=== PATIENT | male | born 1935 | race Caucasian/White ===

== ENCOUNTER 2016-09-04 | Outpatient (CLI) | END 2016-09-04 17:37 | disposition critical access hospital (66) | CPT/HCPCS: A0425; A0427 ==

== ENCOUNTER 2016-09-04 18:11 | Emergency (ER) | payer MEDICARE ==
[2016-09-04] MEDS ORDERED: SODIUM CHLORIDE 0.9% 1,000 ML IV ONE (20:06)
== END 2016-09-04 20:29 | disposition home or self-care (01) ==
DX: E86.0 Dehydration (principal); R55 Syncope and collapse; I25.10 Atherosclerotic heart disease of native coronary artery without angina pectoris; Z95.1 Presence of aortocoronary bypass graft; Z95.0 Presence of cardiac pacemaker; Z86.73 Personal history of transient ischemic attack (TIA), and cerebral infarction without residual deficits

== ENCOUNTER 2016-11-18 20:48 | Outpatient (CLI) | payer MEDICARE | END 2016-11-18 20:49 | disposition short-term general hospital (02) | DX: R46.2 Strange and inexplicable behavior (principal) | CPT/HCPCS: A0170; A0425; A0429 ==

== ENCOUNTER 2016-12-19 13:22 | Outpatient (CLI) | payer MEDICARE | END 2016-12-19 13:23 | disposition home or self-care (01) | DX: Z01.810 Encounter for preprocedural cardiovascular examination (principal); I48.91 Unspecified atrial fibrillation ==

== ENCOUNTER 2017-04-03 13:29 | Outpatient (CLI) | payer MEDICARE | END 2017-04-03 13:30 | disposition home or self-care (01) | LOC: SC 13:29 | PROVIDERS: ATTEND Nurse Practitioner Family | DX: G47.33 Obstructive sleep apnea (adult) (pediatric) (principal) | CPT/HCPCS: 99213; G0463; 99212 ==

== ENCOUNTER 2017-05-23 14:35 | Outpatient (CLI) | payer MEDICARE | END 2017-05-23 14:36 | disposition short-term general hospital (02) | LOC: EMS 14:35 | PROVIDERS: ATTEND Surgery | DX: M25.551 Pain in right hip (principal) | CPT/HCPCS: A0170; A0425; A0427 ==

== ENCOUNTER 2017-06-14 19:27 | Outpatient (CLI) | payer MEDICARE | END 2017-06-14 19:28 | disposition critical access hospital (66) | LOC: EMS 19:27 | PROVIDERS: ATTEND Surgery | DX: R09.89 Other specified symptoms and signs involving the circulatory and respiratory systems (principal) | CPT/HCPCS: A0425; A0429 ==

== ENCOUNTER 2017-06-14 20:04 | Emergency (ER) | payer MEDICARE ==
--- NOTE | 2017-06-14 20:42 | ED Physician Documentation ---
PD HPI HEENT FB - Chief complaint Chief Complaint: General - History obtained from History obtained from: Patient, EMS - History of Present Illness Timing - onset: Today Associated symptoms: Unable to swallow Similar symptoms before: Has not had sx before Recently seen: Not recently seen - Additional information Additional information: Patient is an 81 year old male who is presenting to the emergency department for the sensation of having a pill stuck in his throat. Patient states that he tried to swallow a pill that was about an inch long. Patient states that still feels like it is in his throat. Patient was able to drink a complete glass of water with ems before arrival. Patient does have a history of dementia. Review of Systems Constitutional: denies: Fever, Chills Eyes: denies: Decreased vision Ears: denies: Ear pain, Drainage/discharge Nose: denies: Epistaxis, Sinus pressure / pain, Foreign Body Throat: reports: Swallowed foreign body. denies: Sore throat Cardiac: denies: Chest pain / pressure, Palpitations, Calf pain Respiratory: denies: Dyspnea, Cough, Wheezing GI: denies: Nausea, Vomiting : reports: Reviewed and negative Skin: reports: Reviewed and negative Neurologic: reports: Other (chronic tremor) Immunocompromised: reports: Immunocompromised PD PAST MEDICAL HISTORY - Past Medical History Cardiovascular: Coronary artery disease Neuro: TIA - Past Surgical History Past Surgical History: Yes Cardiovascular: CABG - Present Medications Home Medications: Ambulatory Orders Medication Instructions Recorded Confirmed Amiodarone [Pacerone] DAILY 08/23/14 08/23/14 Atorvastatin [Lipitor] 08/23/14 08/23/14 Clopidogrel Bisulfate [Clopidogrel] DAILY 08/23/14 08/23/14 Levothyroxine [Synthroid] DAILY 08/23/14 08/23/14 - Allergies Allergies/Adverse Reactions: Allergies Allergy/AdvReac Type Severity Reaction Status Date / Time codeine Allergy Itching Verified 06/14/17 20:13 lisinopril Allergy Unknown Verified 06/14/17 20:13 Sulfa (Sulfonamide Allergy Rash Verified 06/14/17 20:13 Antibiotics) - Social History Does the pt smoke?: No Smoking Status: Never smoker Does the pt drink ETOH?: Yes Does the pt have substance abuse?: No - Immunizations Immunizations are current?: No PD ED PE NORMAL - Vitals Vital signs reviewed: Yes - General General: Alert and oriented X 3, No acute distress, Well developed/nourished - HEENT HEENT: Atraumatic, PERRL, Moist mucous membranes, Pharynx benign, Dentition benign - Neck Neck: Supple, no meningeal sign, No JVD - Cardiac Cardiac: RRR, No murmur - Respiratory Respiratory: No respiratory distress - Abdomen Abdomen: Soft, Non tender, Non distended - Derm Derm: Normal color, Warm and dry, No rash - Extremities Extremities: No deformity, No tenderness to palpate - Neuro Neuro: Alert and oriented X 3, No motor deficit, No sensory deficit, Normal speech - Psych Psych: Normal mood, Normal affect PD ED PE EXPANDED - General General: Alert, Anxious - Neuro Neuro: Other (tremor of right upper extremity) Results - Vitals Vitals: Vital Signs - 24 hr 06/14/17 06/14/17 20:10 21:06 Temperature 36.2 C L Heart Rate 64 60 Respiratory 20 16 Rate Blood Pressure 184/73 H 220/98 H O2 Saturation 98 100 Oxygen O2 Source Room air PD MEDICAL DECISION MAKING - ED course Complexity details: reviewed old records, reviewed results, re-evaluated patient , considered differential, d/w patient ED course: Patient was seen and examined at bedside. Patient was well appearing and able to tolerate PO without any difficulty. Patient had no pooling of secretions or airway compromise. Patient was made aware that there was no acute intervention necessary at this time. Patient required no further work up and was stable for discharge with outpatient follow up. Departure - Departure Disposition: 01 Home, Self Care Clinical Impression: Dysphagia Condition: Good Instructions: ED Foreign Body Swallowed Adult Follow-Up: [facility] [Provider Group] - Within 3 Days Comments: Your symptoms should improve over the next day. You should continue to drink small sips of water or carbonated beverages again. If the symptoms persist for more than 24 hours you should follow up with [facility]. You should avoid large bites of food, especially meats (proteins). You should return to an emergency department if you are unable to swallow secretions or any new, worsening or uncontrollable symptoms. Discharge Date/Time: 06/14/17 21:17
[2017-06-14 21:08] VITALS: BP 220/98
== END 2017-06-14 21:17 | disposition home or self-care (01) ==
LOC: EDUNIT# → ED 20:04
DX: R13.10 Dysphagia, unspecified (principal); I25.10 Atherosclerotic heart disease of native coronary artery without angina pectoris; Z95.1 Presence of aortocoronary bypass graft; Z86.73 Personal history of transient ischemic attack (TIA), and cerebral infarction without residual deficits
CPT/HCPCS: 99283

== ENCOUNTER 2018-03-19 13:12 | Outpatient (CLI) | payer MEDICARE ==
--- NOTE | 2018-03-19 16:09 | XRAY Report ---
Procedure Date: 03/19/2018 Accession Number: [id number] / [id number] Procedure: FL - Modified Barium Swallow W/SP CPT Code: FULL RESULT: EXAM: Modified Barium Swallow W/SP DATE: 03/19/2018 1:52 PM CLINICAL HISTORY: DYSPHAGIA, GLOBUS SENSATION COMPARISON: None. TECHNIQUE: Under the direction of speech pathology, patient swallowed various consistencies of barium under lateral fluoroscopic observation of the neck. Fluoroscopic exposure time: 1 minutes 45 seconds. Number of fluoroscopic images: 11 cm loops were recorded. FINDINGS: Airway Protection: Normal epiglottic motion. Silent aspiration is noted with fruit/mixed consistency. Penetration is noted with multiple consistencies. Other: None. Please also refer to full report from Speech Pathology. IMPRESSION: Silent aspiration to mixed consistency foods. RADIA
== END 2018-03-19 13:13 | disposition home or self-care (01) ==
LOC: DI 13:12
PROVIDERS: ATTEND Registered Nurse
DX: R13.10 Dysphagia, unspecified (principal); F45.8 Other somatoform disorders; G20 Parkinson's disease; F02.80 Dementia in other diseases classified elsewhere, unspecified severity, without behavioral disturbance, psychotic disturbance, mood disturbance, and anxiety
CPT/HCPCS: 74230

== ENCOUNTER 2018-04-10 21:16 | Outpatient (CLI) | payer MEDICARE ==
--- NOTE | 2018-04-10 21:34 | CONSULTATION NOTE ---
Palliative Care Consultation - Referral Referring Provider: ALMA DELIA Manrique Time of Visit: 04/10/2018. 13:35 -15:30 Referral setting: Home (Seen in home setting due to taxing and considerable effort required to leave the home due to difficulty with mobility secondary to Parkinson's and advancing dementia.) Referral Reason: Parkinson's, dementia - Information Sources Records reviewed: Previous records reviewed History/Review of Systems obtained from: Patient, Family Exam limitations: Clinical condition (Dementia, expressive aphasia s/p CVA 2013- 2014) - History of Present Illness Brief History of Present Illness: 82 year old man with Parkinson's disease, advancing dementia, and expressive aphasia s/p CVA in 2016. 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 -He had an incidence of choking/swallowing problems recently which shook him up and made him very nervous about eating. I spoke with the EDUCATION CONSULTANT and she noted in fact he has a very functional swallow. The modified barium swallow evaluation in March indicated silent aspiration with fruit/mixed consistency (which is very common), so he should avoid foods with mixed chunks and liquid (cereal with milk , fruit cocktails, chunky vegetable soup). -Patient and partner report his appetite has been poor and he has lost 18 lbs over the past year, 4 lbs from mid-February to March, was 145 lbs in March, now 137 lbs. partner does report, however, that his appetite has recently improved and weight seems to have stabilized. One of the EDUCATION CONSULTANT's recommendations to family is that he have protein shakes; drinking liquids is easier for people with dementia. -He has been going to outpatient PT for two years at [facility], with therapist Alma Rosa, . He has not gone the past two weeks because of fatigue. His partner asked to have Home Health PT, unfortunately this case does not qualify for . I gave her the name of a local strainer tender who works with older clients. Ashely says they have used her before, and she will think about recontacting her. She does state Alma Rosa the PT has said she "won't release him." -Patient has significant expressive aphasia, speaking in non-sequitars and non- sense ("I am 89 years old," "suddenly you're getting organized by the poop"), and at times it is possible to interpret his intent, but mostly not. Partner reports he was constipated years ago and so concerned about it that he wanted to go to the hospital. -He was perseverating regarding constipation and related subjects, often and throughout the assessment, it was unclear what his concern was. Ashely reports he had very loose stools when taking metmucil and they have stopped using it. -Now he has bowel movements approximately every other day. This appears to cause him concern, possibly because it is a change from his previous baseline. -He denies pain, expresses some concern over his inability to do what he used to do. This appears consistent with his general anxiety about his health. Medical/Surgical History - Past Medical History Cardiovascular: reports: Hypertension, High cholesterol, Coronary artery disease , Atrial fibrillation Respiratory: reports: Sleep apnea Neuro: reports: Dementia, CVA (R occipital lobe 10/2015), TIA, Tremors (R hand), Other (Expressive aphasia s/p CVA.) Endocrine/Autoimmune: reports: HyPOthyroidism HEENT: reports: Glaucoma, Macular degeneration - Past Surgical History General: reports: Colonoscopy (01/2014) Ortho: reports: Hip replacement (bilateral), Knee replacement (bilateral) Cardiovascular: reports: CABG, Pacemaker Derm: reports: Skin cancer surgery (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 Support System: Ashely Chaney, his life partner of many years, lives with him. They currently have someone come in intermittently to [place]ovie, cook, and watch the patient so Ashely can leave the house. She has a farm nearby in [place] that is a refuge for her. She leave him alone if she is gone for short periods, such as to her farm. If she leaves for longer periods, such as going to [place] , she has someone at the house, Mikayla, who comes in 1-2x/week for housekeeping , cooking, and looking after the patient. The patient has three children. HPI from PCP's office notes he is a byers. 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 Family History - Family History Family History Comment/Other: Father age 67 of stroke. other age unknown, alcoholic. Half- sister , unknown age. Medications/Allergies - Medications Home Medications: Ambulatory Orders Medication Instructions Recorded Confirmed Amiodarone [Pacerone] 200 mg PO DAILY 08/23/14 08/23/14 Atorvastatin Calcium 0.5 tab PO QPM 04/10/18 04/10/18 Brimonidine 0.1% Ophth Drops 1 drops EACHEYE TID 04/10/18 04/10/18 [Alphagan P 0.1% Ophth Drops] Carbidopa/Levodopa [Carbidopa-Levo 1 tab PO TID 04/10/18 04/10/18 ER 25-100 Tab] Dabigatran Etexilate Mesylate 150 mg PO QPM 04/10/18 04/10/18 [Pradaxa] Donepezil [Aricept] 5 mg PO DAILY 04/10/18 04/10/18 Latanoprost 1 drops EACHEYE QPM 04/10/18 04/10/18 Levothyroxine [Synthroid] 50 mcg PO DAILY 04/10/18 04/10/18 Vit A/Vit C/Vit E/Zinc/Copper 1 cap PO BID 04/10/18 04/10/18 [Preservision Areds Softgel] - Allergies Allergies/Adverse Reactions: Allergies Allergy/AdvReac Type Severity Reaction Status Date / Time codeine Allergy Itching Verified 06/14/17 20:13 lisinopril Allergy Unknown Verified 06/14/17 20:13 Sulfa (Sulfonamide Allergy Rash Verified 06/14/17 20:13 Antibiotics) Review of Systems - Constitutional Constitutional: reports: Poor appetite, Weight loss (145 lbs on 03/08/18, lost 4 lbs since February, 10 lbs over the past year) - Eyes Eyes: reports: Vision loss - Ears, Nose & Throat Ears, Nose & Throat: denies: Hearing loss - Cardiovascular Cardiovascular: reports: Exertional dyspnea, Decr. exercise tolerance. denies: Palpitations, Chest pain, Edema - Respiratory Respiratory: reports: SOB with exertion. denies: Cough, Sputum production, SOB at rest - Gastrointestinal Gastrointestinal: reports: Constipation (bowel movements every other day), Poor appetite - Genitourinary Genitourinary: denies: Dysuria - Musculoskeletal Musculoskeletal: reports: Assistive devices (Uses cane; also has a walker) - Neurological Neurological: reports: Memory problems, Abnormal gait, Incoordination, Other (R hand tremor) - Endocrine Endocrine: reports: Hypothyroidism - Hematologic/Lymphatic Hematologic/Lymphatic: reports: Other Physical Exam - Vital Signs Temperature: 96.7 F Pulse Rate: 64 O2 Saturation: 99 Blood Pressure: 132/68 (arm cuff) - Physical Exam General Appearance: positive: No acute distress, Alert Eyes Bilateral: positive: EOMI, No lid inflammation, No scleral icterus ENT: positive: No signs of dehydration Neck: positive: No JVD, Trachea midline Cardiovascular: positive: Regular rate & rhythm, Systolic murmur (09/09) Abdomen: positive: Non-tender, Soft, Abnml bowel sounds (hypoactive) Skin: positive: Bruising (Hemosiderin staining bilateral backs of hands) Extremities: positive: Pedal edema (minimal) Neurologic/Psychiatric: positive: Mood/affect nml, Disoriented to time Palliative Care - POLST Patient has POLST: No Pain: No pain Tiredness/Fatigue: Mild (1-3) Drowsiness/Sedation: None Dyspnea: None Anorexia: Moderate (4-6) Constipation: Intermittent constipation (bowel movements every other day) Performance Status: Requires assistance with ADLs, bathinig, putting on shoes. Unable to do IADLs ( finances, housekeeping, etc). Can ambulate without cane or walker, but uses cane outside. He had been going to PT outpatient for several years, but stopped going over the past two weeks, because he is tired. Yesterday he left the house and walked independently to the road, met up with a community health advisor friend who brought him back to the house. - Palliative Care Discussion: Had a very long discussion with Ashely the partner and the patient. Ashely reports they have POA and advanced directives for each other, but she is unable to find them. If left blank DPOA forms with them for them to fill out, if they wish Her wishes are that the patient avoids hospitalization, and comfort care. This is also what she wishes for herself. She says when they have discussed it in the past, they both agreed, and comfort care is what she chooses for her self. It is difficult to determine if this is also the wish of the patient. We had a long discussion of advanced care planning, it appeared he would not want resuscitation, but he felt some confusion and lack of clarity, he ultimately wasn't ready to sign a POLST, particularly after learning that Ashely was not able to also sign a POLST today with him (she is not my patient). Patient has difficulty comprehending as well as asking questions and expressing himself. We agreed we will continue the advanced care planning discussion at our next meeting. Ashely shows evidence of caregiver burnout. She sometimes thinks, "I'm not a good caregiver." She is uncertain whether to force it (eg, medication compliance ) or is she letting him down if she doesn't force it. I provided some guidance and reassurance. Both she and the patient are grateful for Mikayla, their imaging administrator/cook who also stays with the patient so that Ashely can get some time out fo the house. She does feel she could go "franco raving mad" if she had to stay in the house all of the time. I offered [employer]ING INSTALLER support as needed for psychosocial support. [place]ly took care of her mother for the last 6 years of her life, and her mother while on Hospice. Ashely thinks the Hospice services was amazing and has had a very positive experience with Hospice for her mother. Her biggest concern is being able to care of the patient so he can stay at home ; she does not want him in the hospital or a facility. We discussed having sufficient caregiving support, as well as hospice eventually, when he meets criteria. In a follow up call to Ashely she expressed how much this palliative care visit really helped, in the sense of her feeling that now she has support. She said she feels much better after our visit. Impression and Recommendations - Palliative Care Impression: 82 year old man with Parkinson's disease, advancing dementia, and expressive aphasia s/p CVA in 2016. He has slow, steady decline with dysphagia and weight loss over the past year. He is at risk of the sequelae of aspiration pneumonia as well as falls with his Parkinson's disease and dementia. His partner is at risk of caregiver burnout. They do have financial resources to bring in outside caregiver support. Palliative care will offer support and monitoring, with transition to Hospice when appropriate. Recommendations/Counseling Done: Parkinson's disease: Patient and partner are hoping to avoid trips on to the [facility] for regular appointments. I told her PCP and Palliative care can write prescription refills while patient is stable, if neurologist Dr Wiggins at [facility] is agreeable. Patient has noticeable R hand tremor, but still able to sign his name today. Able to walk unaided today; usually uses a cane. No sign of PD freeze or shuffling today, partner notes that today he is walking very well, which is not usually the case. Continue Sinemet 25/100 TID. Dementia: Stable, with slow decline, marked confusion and difficulty processing information. Continue donpezil 5mg. Expressive aphasia s/p CVA 2016: Marked difficulty with expressing complex sentences. Continue Atorvastatin. Atrial fibrillation: Continue Pradaza for anticoagulation, amiodarone for rate control. Dysphagia: Patient had barium swallow test in March, EDUCATION CONSULTANT report shows he has a functional swallow, but needs to avoid mixed solids and liquids (veg/meats in broth, cereal in milk, fruit cocktail in syrup, etc) Constipation: This has been a chronic, ongoing concern of the patient's going back quite a few years; he was perseverating about it today. He has been anxious enough about it in the past to want to go to the hospital, something like 8 years ago. Ashely reports the patient has bowel movements about every other day. They are not currently using bowel medications. Metamucil in the past caused loose stools so they have stopped. Patient is not on opioids. Monitor and start bowel meds as indicated. Weight loss: Was 145 lbs 03/08/18, had lost 10 lbs up to that point. reports he is currently 137 lbs and has stabilized there, with his appetite showing some rebound. EDUCATION CONSULTANT has recommended nutritional smoothies, blending can of Ensure , ice cream, fresh fruit, and chocolate syrup, which is a complete. Glaucoma: Partner notes medication resistance, particularly the brimonidine TID drops. I encouraged her to not make it a graham, do the best, keep a record. Continue latanoprost drops QPM and Preservision BID. Advanced care planning: No POLST was signed today, patient confused when Ashely was not able to also sign a POLST. Partner has definite ideas for herself of DRN and comfort care, relates that she and the patient had agreed on this in the past. She is not able to find their signed advanced directives, nor the DPOA papers. I left DPOA papers with her. We agreed to continue the conversation about goals of care at the next meeting. The patient has stated he doesn't want CPR, but he is confused about the comfort care vs selective care. Ashely's goal is to take care of him and home, and to not have him institutionalized or hospitalized, and she is relieved to have palliative care support, and she would like him transitioned to Hospice when appropriate; she has had very good experience in the past with Hospice for her mother. Call in 3-4 weeks to schedule follow-up meeting. Time Spent: 115 minutes were spent with more than 50% of the time spent on counseling, education, anticipatory guidance, and coordination of care.
== END 2018-04-10 21:17 | disposition home or self-care (01) ==
LOC: PC 21:16
PROVIDERS: ATTEND Nurse Practitioner
DX: Z51.5 Encounter for palliative care (principal); G20 Parkinson's disease; F03.90 Unspecified dementia, unspecified severity, without behavioral disturbance, psychotic disturbance, mood disturbance, and anxiety; I69.320 Aphasia following cerebral infarction; I48.91 Unspecified atrial fibrillation; Z79.01 Long term (current) use of anticoagulants; K59.00 Constipation, unspecified; R63.4 Abnormal weight loss; H40.9 Unspecified glaucoma; Z95.5 Presence of coronary angioplasty implant and graft; Z87.891 Personal history of nicotine dependence
CPT/HCPCS: 99345

== ENCOUNTER 2018-05-08 20:35 | Outpatient (CLI) | payer MEDICARE ==
--- NOTE | 2018-05-08 20:46 | CONSULTATION NOTE ---
Palliative Care Follow Up - Referral Referring Provider: ALMA DELIA Manrique Time of Visit: 05/08/2018. 13:25 - 14:30. Referral Reason: Constipation - Information Sources Records reviewed: Previous records reviewed History/Review of Systems obtained from: Patient, Family Exam limitations: Clinical condition (Parkinson's dementia; expressive aphasia s /p CVA) - History of Present Illness Update Brief HPI Update: 82 year old man with Parkinson's disease, advancing dementia, and expressive aphasia s/p CVA in 2016. 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 -PCP initially recommended Milk of Mg every 20-30 minutes until a bowel movement occurred. His partner was not skeptical of this, so Miralax was recommended instead. -He has had bowel movements since then. We had a long discussion, I recommend Senna daily and also Miralax, but titrate dosing, better to start with a small dose, increase as needed every 2-3 days, they may need to do something like 1/4 capful every other day. -The emphasis was on using the bowel meds in a consistent manner, and they will need to monitor and keep a journal to vacuum bottle assembler what is the optimum dosing for him. -Also strongly recommended adding fiber to diet through fruits, vegs, beans, etc , and get him up and moving as often as possible instead of sedentary in the chair. He also doesn't hydrate regularly. -Patient has episodic redness, rawness around his anus; I recommmended several different creams. Social History - Living Situation Living arrangement: At home Living Situation: With spouse/s.o. Support System: Lives at home with his partner of 20+ years, Ashely. they have a helper who comes intermittently to [facility] with housework, cooking and watching the patient so Ashely can leave. She has farmland nearby that she likes to work in. The patient has 3 children. He is a retired assistant city attorney. Medications/Allergies - Medications Home Medications: Ambulatory Orders Medication Instructions Recorded Confirmed Amiodarone [Pacerone] 200 mg PO DAILY 08/23/14 05/08/18 Atorvastatin Calcium 20 mg PO QPM 04/10/18 05/08/18 Brimonidine 0.1% Ophth Drops 1 drops EACHEYE TID 04/10/18 05/08/18 [Alphagan P 0.1% Ophth Drops] Carbidopa/Levodopa [Carbidopa-Levo 1 tab PO TID 04/10/18 05/08/18 ER 25-100 Tab] Dabigatran Etexilate Mesylate 150 mg PO QPM 04/10/18 05/08/18 [Pradaxa] Donepezil [Aricept] 5 mg PO DAILY 04/10/18 05/08/18 Latanoprost 1 drops EACHEYE QPM 04/10/18 05/08/18 Levothyroxine [Synthroid] 50 mcg PO DAILY 04/10/18 05/08/18 Vit A/Vit C/Vit E/Zinc/Copper 1 cap PO BID 04/10/18 05/08/18 [Preservision Areds Softgel] - Allergies Allergies/Adverse Reactions: Allergies Allergy/AdvReac Type Severity Reaction Status Date / Time codeine Allergy Itching Verified 06/14/17 20:13 lisinopril Allergy Unknown Verified 06/14/17 20:13 Sulfa (Sulfonamide Allergy Rash Verified 06/14/17 20:13 Antibiotics) Review of Systems - Constitutional Constitutional: reports: Poor appetite, Weight stable (Weighed 140 lbs today, with clothes and shoes on. On 04/10 it was 137 lbs, without clothing and shoes. But he had lost 10 lbs over the past year.) - Cardiovascular Cardiovascular: reports: Decr. exercise tolerance - Respiratory Respiratory: denies: SOB at rest - Gastrointestinal Gastrointestinal: denies: Abdominal pain, Abdominal distention, Nausea - Genitourinary Genitourinary: reports: Incontinence (occasional urinary incontinence) - Musculoskeletal Musculoskeletal: reports: Assistive devices (walker and cane), Transfer issues ( self transfers) - Neurological Neurological: reports: Other (Parkinson's and expressive aphasia s/p CVA) - Endocrine Endocrine: reports: Hypothyroidism Physical Exam - Vital Signs Temperature: 96.5 F Pulse Rate: 83 O2 Saturation: 99 Blood Pressure: 95/55 (wrist cuff) - Physical Exam General Appearance: positive: No acute distress, Alert Eyes Bilateral: positive: No lid inflammation, Conjunctivae nml, No scleral icterus ENT: positive: No signs of dehydration Neck: positive: Trachea midline Cardiovascular: positive: No murmur, No gallop, Irregular Respiratory: positive: No respiratory distress, Breath sounds nml Abdomen: positive: Non-tender, Soft, Nml bowel sounds Skin: positive: Other (Redness around anus) Extremities: positive: Nml appearance Neurologic/Psychiatric: positive: Disoriented to time, Other (Pill rolling R hand; expressive aphasia/word search, slow processing time) Palliative Care - POLST Patient has POLST: Yes POLST Status: DNR, Comfort Measures - Palliative Care Discussion: We continued the discussion of goals of care from last visit. Patient seemed clearer this time and able to more successfully focus. He agrees that DNR is what he want, he wants to avoid hospitalization, goal is to remain at home with comfort care. Patient's partner mentions that this is what her goals of care are also. Impression and Recommendations - Palliative Care Impression: 82 year old man with Parkinson's disease, advancing dementia, and expressive aphasia s/p CVA in 2016. He is stable within a context of slow, steady decline over the past year. Goals of care are comfort focused and to remain at home if possible. Patient's life partner is particularly relieved to continue Palliative oversight and support with transition to Hospice when appropriate. Recommendations/Counseling Done: Parkinson's disease: Symmptoms at baseline. [facility], Dr Wiggins at [place]. They would like PCP and Palliative care to refill prescriptions while patient is stable, if neurologist is agreeable. Continue Sinemet 25/100 TID. Dementia: Stable. Continue donpezil 5mg. Expressive aphasia s/p CVA 2016: Expressive aphasia at baseline. Continue Atorvastatin. Atrial fibrillation: Continue Pradaza for anticoagulation, amiodarone for rate control. Dysphagia: Avoid mixed solids and liquids (veg/meats in broth, cereal in milk, fruit cocktail in syrup, etc) to reduce risk for aspiration pneumonia Constipation: Chronic, long-standing. Had a recent stretch of 7 days without BM. Taking Senna 8.6 two tablets daily. Starting miralax. Recommended starting low dose and titrate slowly as indicated. Finding a consistent dosage and timing is mcginnis, instead of using it "as needed." They may end up on an every- other-day schedule. Recommend increasing fiber intake through fruits, vegs, beans, legumes, increase his mobiilty, even just around the house. Weight loss: Stabilized at 140 lbs today, with clothing and shoes. Was 137 lbs at prior visit, without shoes, etc. He's lost about 10 lbs over the pst year. Advanced care planning: POLST signed today: DNR and comfort care. Goal is to remain at home and at home, no hospitalization or institutionalization. 06/13/18 at 12:00 follow-up visit. Time Spent: 65 minutes were spent with more than 50% of the time spent in counseling, education on constipation, anticipatory guidance on goals of care, and coordination of care.
== END 2018-05-08 20:36 | disposition home or self-care (01) ==
LOC: PC 20:35
PROVIDERS: ATTEND Nurse Practitioner
DX: Z51.5 Encounter for palliative care (principal); G20 Parkinson's disease; F02.80 Dementia in other diseases classified elsewhere, unspecified severity, without behavioral disturbance, psychotic disturbance, mood disturbance, and anxiety; I69.920 Aphasia following unspecified cerebrovascular disease; I48.91 Unspecified atrial fibrillation; E03.9 Hypothyroidism, unspecified; E78.5 Hyperlipidemia, unspecified; R13.10 Dysphagia, unspecified; K59.00 Constipation, unspecified; M25.569 Pain in unspecified knee; I10 Essential (primary) hypertension; G47.33 Obstructive sleep apnea (adult) (pediatric); E21.3 Hyperparathyroidism, unspecified; H40.10X0 Unspecified open-angle glaucoma, stage unspecified; H35.30 Unspecified macular degeneration; Z96.653 Presence of artificial knee joint, bilateral; Z95.0 Presence of cardiac pacemaker; Z66 Do not resuscitate
CPT/HCPCS: 99350

== ENCOUNTER 2018-06-13 17:23 | Outpatient (CLI) | payer MEDICARE ==
--- NOTE | 2018-06-13 18:09 | CONSULTATION NOTE ---
Palliative Care Follow Up - Referral Referring Provider: Galina FLANNERY Time of Visit: 06/13/2018. 12:15 - 12:55 Referral setting: Home (Seen in home setting due to taxing and considerable effort required to leave the home due to difficulty with mobility secondary to Parkinson's and advancing dementia.) Referral Reason: Constipation - Information Sources Records reviewed: Previous records reviewed History/Review of Systems obtained from: Patient, Family Exam limitations: Clinical condition (dementia expressive aphasia s/p CVA) - History of Present Illness Update Brief HPI Update: 82 year old man with Parkinson's disease, advancing dementia, and expressive aphasia s/p CVA in 2016. 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 He has a very difficult time tracking conversations and is unable to finish sentences/express himself. -Spouse was using bacitracin solution on his rash around anus, thought it worked better than "Butt Paste" barrier cream. I recommended Coloplast Philomena antifungal barrier cream until resolved. -He has intermittent constipation; they tried Miralax but it upsets his stomach. She started using the dulcolax some what frequently - several times a week. I recommended against that, use it sparingly due to harshness. -They've already stopped using Miralax. I educated on using senna, which they will, either senna 8.6mg or senna/docusate 8.6.mg/50mg. -Spouse reports he gets hemorrhoids, I provided education regarding controlling constipation, and use of creams, eg PrepH, for symptom management Social History - Living Situation Living arrangement: At home Living Situation: With spouse/s.o. Support System: Lives in their yared home with his partner of 20% years, Ashely. They have a helper for housework, cooking, watching him so Ashely can get out of the house. She has a nearby farmland she works in. 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 Medications/Allergies - Medications Home Medications: Ambulatory Orders Medication Instructions Recorded Confirmed Amiodarone [Pacerone] 200 mg PO DAILY 08/23/14 05/08/18 Atorvastatin Calcium 20 mg PO QPM 04/10/18 05/08/18 Brimonidine 0.1% Ophth Drops 1 drops EACHEYE TID 04/10/18 05/08/18 [Alphagan P 0.1% Ophth Drops] Carbidopa/Levodopa [Carbidopa-Levo 1 tab PO TID 04/10/18 05/08/18 ER 25-100 Tab] Dabigatran Etexilate Mesylate 150 mg PO QPM 04/10/18 05/08/18 [Pradaxa] Donepezil [Aricept] 5 mg PO DAILY 04/10/18 05/08/18 Latanoprost 1 drops EACHEYE QPM 04/10/18 05/08/18 Levothyroxine [Synthroid] 50 mcg PO DAILY 04/10/18 05/08/18 Vit A/Vit C/Vit E/Zinc/Copper 1 cap PO BID 04/10/18 05/08/18 [Preservision Areds Softgel] Bisacodyl Supp [Dulcolax Supp] 10 mg RI PRN PRN MDD use only if 06/13/18 06/13/18 no BM in 3 days Coloplast Philomena Antifung Barrier Crm 1 ea TOP DAILY PRN 06/13/18 Senna [Senokot] 1 - 2 tab PO DAILY 06/13/18 06/13/18 - Allergies Allergies/Adverse Reactions: Allergies Allergy/AdvReac Type Severity Reaction Status Date / Time codeine Allergy Itching Verified 06/14/17 20:13 lisinopril Allergy Unknown Verified 06/14/17 20:13 Sulfa (Sulfonamide Allergy Rash Verified 06/14/17 20:13 Antibiotics) Review of Systems - Constitutional Constitutional: reports: Weight stable (137-140 lbs) - Ears, Nose & Throat Ears, Nose & Throat: reports: Hearing loss - Cardiovascular Cardiovascular: reports: Decr. exercise tolerance. denies: Chest pain - Respiratory Respiratory: denies: Cough - Gastrointestinal Gastrointestinal: reports: Constipation - Genitourinary Genitourinary: reports: Incontinence (occasional urinary incontinence) - Musculoskeletal Musculoskeletal: reports: Assistive devices (walker and cane), Transfer issues (self transfers, unsteady) - Neurological Neurological: reports: General weakness, Other (Parkinson's disease and expressive aphasia s/p CVA) Physical Exam - Vital Signs Temperature: 96.6 F Pulse Rate: 60 O2 Saturation: 99 (room air) Blood Pressure: 114/56 (wrist cuff) - Physical Exam General Appearance: positive: No acute distress, Alert Eyes Bilateral: positive: No lid inflammation, Conjunctivae nml, No scleral icterus ENT: positive: No signs of dehydration Neck: positive: Trachea midline, Stiff neck Cardiovascular: positive: Systolic murmur (2/6) Respiratory: positive: No respiratory distress, Breath sounds nml Skin: positive: Bruising (back of hand) Neurologic/Psychiatric: positive: Disoriented to time, Flat affect Palliative Care - POLST POLST Status: DNR, Comfort Measures Pain: No pain Tiredness/Fatigue: Mild (1-3) Anxiety: None Anorexia: Mild (1-3) Constipation: Yes, Intermittent constipation Impression and Recommendations - Palliative Care Impression: 82 year old man with Parkinson's disease, advancing dementia, and expressive aphasia s/p CVA in 2016. He still experiences constipation and his partner now has a care plan for this. Palliative care will continue to monitor and provide support to patient and his partner. Recommendations/Counseling Done: Parkinson's disease: Symptoms at baseline. Continue Sinemet 25/100 TID. Dementia: Stable within context of slow, steady decline. Continue donpezil 5mg. Expressive aphasia s/p CVA 2016: Expressive aphasia at baseline. Continue Atorvastatin. Constipation: Extensive discussion. Stop Miralax due to upset stomach. Start Senna 1-2 tabs daily or 1 tab BID. Spouse has been using dulcolax suppository somewhat frequently. Provided education to use it sparingly (more than 3 days of constipation) and instead to use Senna daily. She has Senna/docusate on hand, ok to use that. I suggested just plain senna when her bottle runs out. She can decide which works better. Reiterated recommendation to increase fiber intake through fruits, vegs, beans, legumes, increase his mobility, even just around the house. Hemorroids: Educated on prevention or amelioration of constipation. Prep H for symptom relief Rash, buttocks/anus: Coloplast Philomena Antifunal Barrier Cream. Weight loss: 137 lbs today, at 140 lbs at 05/08 visit, 137 lbs at 04/10/ visit. Patient has lost about 10 lbs over the past year. Advanced care planning: DNR and comfort care. Goal is to remain at home, no hospitalization or institutionalization. Returned the original POLST form to them, accidentally taken with me at last visit. 08/08/18 at 12:00-13:00ish follow-up visit. Time Spent: 40 minutes were spent with more than 50% of the time spent on counseling, education, and coordination of care.
== END 2018-06-13 17:24 | disposition home or self-care (01) ==
LOC: PC 17:23
PROVIDERS: ATTEND Nurse Practitioner
DX: Z51.5 Encounter for palliative care (principal); G20 Parkinson's disease; F02.80 Dementia in other diseases classified elsewhere, unspecified severity, without behavioral disturbance, psychotic disturbance, mood disturbance, and anxiety; I69.920 Aphasia following unspecified cerebrovascular disease; K59.00 Constipation, unspecified; K64.9 Unspecified hemorrhoids; R63.4 Abnormal weight loss; H91.90 Unspecified hearing loss, unspecified ear; R32 Unspecified urinary incontinence; Z66 Do not resuscitate
CPT/HCPCS: 99349

== ENCOUNTER 2018-07-24 09:41 | Outpatient (CLI) | payer MEDICARE | END 2018-07-24 09:42 | disposition short-term general hospital (02) | LOC: EMS 09:41 | PROVIDERS: ATTEND Surgery | DX: R53.1 Weakness (principal) | CPT/HCPCS: A0425; A0427 ==

== ENCOUNTER 2018-08-08 16:07 | Outpatient (CLI) | payer MEDICARE ==
--- NOTE | 2018-08-08 16:39 | CONSULTATION NOTE ---
Palliative Care Follow Up - Referral Referring Provider: ALMA DELIA Manrique Time of Visit: 08/08/2018 Referral setting: Home (Seen in home setting due to taxing and considerable effort due to difficulty with mobility secondary to Parkinson's and advancing dementia.) Referral Reason: Parkinson's - Information Sources Records reviewed: Previous records reviewed History/Review of Systems obtained from: Patient, Family Exam limitations: Clinical condition (dementia; expressive aphasia s/p CVA) - History of Present Illness Update Brief HPI Update: 82 year old man with Parkinson's disease, advancing dementia, and expressive aphasia s/p CVA in 2016. 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 -Diagnostics were negative. CXR found what appeared to be chronic aspiration. -Patient has been admitted this week to [facility] for RN care (medication management, disease teaching, wound management), bath aid, PT, OT, and SP evaluations. -His partner Ashely reports patient is declining, and more tired and weak since discharging from hospital, he is no longer able to climb the steps without her help (she uses a belt to support him). -He also had labile HTN. Today BP is 151/72, it's usually in the 110s-120s. -Patient denies chest pain or shortness of air. -His confusion and aphasia continue to slowly decline. -He has episodes of constipation, and has stopped taking the senna although that has helped keep him regular. Discussed with patient and Ashely, patient agrees to restart taking. -Encouraged increased hydration, Ashely admits to forgeting to provide fluids for him. -Ashely has a hired person who helps out with the house and watching the patient a few times per week. -They have had a follow up consultation with his PCP and have another scheduled. -They will also have an appointment around [place] for his pacemaker. Social History - Living Situation Living arrangement: At home Living Situation: With spouse/s.o. Support System: Patient lives alone with Ashely his partner of 20+ years. They do have a helper for housework, cooking and watching the patient so Ashely can run errands and get out of the house, and go to the nearby farmland she works at. 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 Medications/Allergies - Medications Home Medications: Ambulatory Orders Medication Instructions Recorded Confirmed Amiodarone [Pacerone] 200 mg PO DAILY 08/23/14 08/08/18 Atorvastatin Calcium 20 mg PO QPM 04/10/18 08/08/18 Carbidopa/Levodopa [Carbidopa-Levo 1 tab PO TID 04/10/18 08/08/18 ER 25-100 Tab] Dabigatran Etexilate Mesylate 150 mg PO BID 04/10/18 08/08/18 [Pradaxa] Donepezil [Aricept] 10 mg PO DAILY 04/10/18 08/08/18 Levothyroxine [Synthroid] 50 mcg PO DAILY 04/10/18 08/08/18 Vit A/Vit C/Vit E/Zinc/Copper 1 cap PO BID 04/10/18 08/08/18 [Preservision Areds Softgel] Bisacodyl Supp [Dulcolax Supp] 10 mg [place] PRN PRN MDD use only if 06/13/18 08/08/18 no BM in 3 days Coloplast Philomena Antifung Barrier Crm 1 ea TOP DAILY PRN 06/13/18 08/08/18 Senna [Senokot] 1 - 2 tab PO DAILY 06/13/18 08/08/18 - Allergies Allergies/Adverse Reactions: Allergies Allergy/AdvReac Type Severity Reaction Status Date / Time codeine Allergy Itching Verified 06/14/17 20:13 lisinopril Allergy Unknown Verified 06/14/17 20:13 Sulfa (Sulfonamide Allergy Rash Verified 06/14/17 20:13 Antibiotics) Review of Systems - Constitutional Constitutional: reports: Fatigue, Weakness, Weight stable (136 lbs. Ranges 137- 140 lbs.) - Ears, Nose & Throat Ears, Nose & Throat: reports: Hearing loss - Cardiovascular Cardiovascular: reports: Decr. exercise tolerance. denies: Chest pain - Respiratory Respiratory: denies: SOB at rest - Gastrointestinal Gastrointestinal: reports: Constipation - Genitourinary Genitourinary: reports: Incontinence (occasional urinary) - Musculoskeletal Musculoskeletal: reports: Assistive devices (walker, cane), Transfer issues (unsteady, increased weakness) - Neurological Neurological: reports: General weakness, Other (Parkinson's, expressive aphasia s/p CVA) - Psychiatric Psychiatric: denies: Behavior disturbances - Endocrine Endocrine: reports: Hypothyroidism - Hematologic/Lymphatic Hematologic/Lymphatic: reports: Bruising (hemosiderin staining backs of hands) - All Other Systems All Other Systems: reports: Reviewed and negative Physical Exam - Vital Signs Temperature: 96.4 F Pulse Rate: 72 O2 Saturation: 99 (room air) Blood Pressure: 151/72 (wrist cuff) - Physical Exam General Appearance: positive: No acute distress, Alert Eyes Bilateral: positive: No lid inflammation, Conjunctivae nml, No scleral icterus ENT: positive: No signs of dehydration Neck: positive: No JVD, Trachea midline Cardiovascular: positive: Regular rate & rhythm, No murmur, No gallop Respiratory: positive: Chest non-tender, No respiratory distress, Diminished in bases (R lower lobe). negative: Wheezes, Rales, Rhonchi Skin: positive: Bruising (hemosiderin staining backs of hands) Extremities: positive: Non-tender, Pedal edema (mild pedal edema), Other (significant R arm tremors) Neurologic/Psychiatric: positive: Mood/affect nml, Disoriented to time, Slurred/abnml speech (word salad; word search/incomplete thoughts/sentences) Palliative Care - POLST Patient has POLST: Yes POLST Status: DNR, Comfort Measures Tiredness/Fatigue: Moderate (4-6), Comment (worse since hospital) Constipation: Managed (using senna; won't use Miralax), Intermittent constipation Performance Status: Weaker and more tired since discharge from hospital Requires support/help up the stairs PT OT and SP are starting this week and next week - Palliative Care Discussion: Ashely notes he is weaker and more tired since the hospitalization, and she must helps him more with things like getting dressed. HH nursing and bath aid started this week, and PT, OT and speech have started or will start in the next two weeks. She is grateful for the support, but does not want medical and therapy appointments to "take over their life." Their goal has been for him to remain at home with comfort care, but she thought she was going to lose him when he collapsed and started shaking, and was very grateful that the EMS team arrived so quickly. She is worried about his having aspiration pneumonia; we discussed diet and textures, and Speech therapy will be working with the patient. She wants Palliative Care monitoring and support to continue. Impression and Recommendations - Palliative Care Impression: 82 year old man with Parkinson's disease, advancing dementia, and expressive aphasia s/p CVA in 2016. He was hospitalized 07/24-07/26/18 at [facility] for near syncope and dehydration, and since discharging home has been weaker with declining functionality. He is starting Home Health services this week and in the next 2 weeks: RN, bath aid, PT, OT, SP for dysphagia. Palliative care will continue to monitor and provide support to patient and his partner. Recommendations/Counseling Done: General weakness: Worse ever since hospitalization for a near syncopal event and dehydration. Patient requires more help with ADLs, support when climbing stairs, etc. RN, PT, OT have started or will start next week. Dysphagia: CXR during hospitalization whas what appears to be chronic aspiration. SP evaluation week after next. Partner will start using thickener for his liquids. Parkinson's disease: Significant tremor of R hand. Continue Sinemet 25/100 TID. Dementia: Slow, steady, continued decline. Donepezil now 10mg daily. Expressive aphasia s/p CVA 2016: Expressive aphasia at baseline. Continue Atorvastatin. Atrial fibrillation: Amiodarone for rate control, Dabigatran for anticoagulation. Constipation: Intermittent constipation. Doesn't use Miralax due to upset stoma ch. Patient stopped taking Senna and constipation increased. Recommended restarting Senna 1-2 tabs daily or 1 tab BID. Reiterated education on fiber intake and vegs/fruits in the diet. Rash, buttocks/anus: Coloplast Philomena Antifunal Barrier Cream is working very well.. Weight loss: Stabilized, ranges from 137- 140 lbs. At HH RN visit it is 136 lbs. Patient has lost ~10 lbs over the past year. Advanced care planning: DNR and comfort care and they originally wanted no hospitalization, but partner did call 911 for acute situation. Goal is still to remain at home if possible. Follow up visit: Mon10/24/18 10:30-11:30 Time Spent: 45 minutes were spent with more than 50% of the time spent on counseling, education, and coordination of care.
== END 2018-08-08 16:08 | disposition home or self-care (01) ==
LOC: PC 16:07
PROVIDERS: ATTEND Nurse Practitioner
DX: Z51.5 Encounter for palliative care (principal); G20 Parkinson's disease; F02.80 Dementia in other diseases classified elsewhere, unspecified severity, without behavioral disturbance, psychotic disturbance, mood disturbance, and anxiety; I69.920 Aphasia following unspecified cerebrovascular disease; R13.10 Dysphagia, unspecified; I48.91 Unspecified atrial fibrillation; K59.00 Constipation, unspecified; R21 Rash and other nonspecific skin eruption; R63.4 Abnormal weight loss; E78.5 Hyperlipidemia, unspecified; E03.9 Hypothyroidism, unspecified; M25.559 Pain in unspecified hip; I10 Essential (primary) hypertension; M19.90 Unspecified osteoarthritis, unspecified site; H40.10X0 Unspecified open-angle glaucoma, stage unspecified; H35.30 Unspecified macular degeneration; R53.1 Weakness; Z66 Do not resuscitate; Z95.0 Presence of cardiac pacemaker; Z96.653 Presence of artificial knee joint, bilateral
CPT/HCPCS: 99349

== ENCOUNTER 2018-09-16 11:02 | Outpatient (CLI) | payer MEDICARE | END 2018-09-16 11:03 | disposition EMS.NT | LOC: EMS 11:02 | PROVIDERS: ATTEND Surgery | DX: Z03.89 Encounter for observation for other suspected diseases and conditions ruled out (principal); W18.39XA Other fall on same level, initial encounter; Y93.01 Activity, walking, marching and hiking; Y92.009 Unspecified place in unspecified non-institutional (private) residence as the place of occurrence of the external cause ==

== ENCOUNTER 2018-10-30 16:29 | Outpatient (CLI) | payer MEDICARE ==
--- NOTE | 2018-10-30 16:40 | CONSULTATION NOTE ---
Palliative Care Follow Up - Referral Referring Provider: ALMA DELIA Manrique Time of Visit: Mon10/30/2018. 12:50 - 13:10 Referral setting: Home (Seen in home setting due to taxing and considerable effort due to difficulty with mobility secondary to Parkinson's and advancing dementia.) Referral Reason: Parkinson's / general weakness - History of Present Illness Update Brief HPI Update: 83-year-old man with Parkinson's disease, advancing dementia, and expressive aphasia s/p CVA in 2015. 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 September 2018 EMS was called out for episode of weakness when patient was in the bathroom. EMS stayed with patient and until he recuperated; he wasn't sent to ED. Patient started PT, HH, OT and SP, but only for a short period. OT was a single visit; SP never occurred because of scheduling and the spouse felt too overwhelmed during the holiday season. PT did 3 out of 6 scheduled visits and then the patient and his spouse declined further visits, thinking that he had no need for further PT. The spouse reports she did not find the Bath Aid useful, and they have since found a method that works for them. Spouse reported last week that she felt Palliative Care was no longer needed and asked to be put on hold. Yesterday, however, the patient was extremely tired and weakness, and the spouse felt alarmed and so requested a visit. Today the patient is able to verbalize, transfers from his chair, is ambulatory and is back to his baseline. They report his constipation is under control, he is ambulatory, their caregiver is back from vacation, and the household is running normally again. Ashely, the spouse, emphasizes that their caregiver/drum plater makes all the difference; when she is here, Ashely can go work on her family farm, which is just up the street. Ashely reports she is better able to react when the patient has these episodes of fatigue and weakness, but she would like to continue with the oversight and monitoring of Palliative Care, we agreed every 2-3 months, and as needed if something comes up. Social History - Living Situation Living arrangement: At home Living Situation: With spouse/s.o. Support System: Patient lives alone with Ashely his partner of 20+ years. They do have a helper for housework, cooking and watching the patient so Ashely can run errands and get out of the house, and go to the nearby farmland she works at. 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 Medications/Allergies - Medications Home Medications: Ambulatory Orders Medication Instructions Recorded Confirmed Amiodarone [Pacerone] 100 mg PO DAILY 08/23/14 10/30/18 Atorvastatin Calcium 20 mg PO QPM 04/10/18 10/30/18 Carbidopa/Levodopa [Carbidopa-Levo 1 tab PO TID 04/10/18 10/30/18 ER 25-100 Tab] Dabigatran Etexilate Mesylate 150 mg PO BID 04/10/18 10/30/18 [Pradaxa] Donepezil [Aricept] 20 mg PO DAILY 04/10/18 10/30/18 Levothyroxine [Synthroid] 50 mcg PO DAILY 04/10/18 10/30/18 Bisacodyl Supp [Dulcolax Supp] 10 mg SD PRN PRN MDD use only if 06/13/18 10/30/18 no BM in 3 days Coloplast Philomena Antifung Barrier Crm 1 ea TOP DAILY PRN 06/13/18 10/30/18 Senna [Senokot] 1 - 2 tab PO DAILY 06/13/18 10/30/18 - Allergies Allergies/Adverse Reactions: Allergies Allergy/AdvReac Type Severity Reaction Status Date / Time codeine Allergy Itching Verified 06/14/17 20:13 lisinopril Allergy Unknown Verified 06/14/17 20:13 Sulfa (Sulfonamide Allergy Rash Verified 06/14/17 20:13 Antibiotics) Review of Systems - Constitutional Constitutional: reports: Weakness, Weight stable (ranges 137-140 lbs) - Ears, Nose & Throat Ears, Nose & Throat: reports: Hearing loss - Cardiovascular Cardiovascular: reports: Lightheadedness (occasional), Decr. exercise tolerance - Gastrointestinal Gastrointestinal: reports: Constipation (improved), Good appetite - Genitourinary Genitourinary: reports: Incontinence (occasional urinary) - Musculoskeletal Musculoskeletal: reports: Stiffness, Limited range of motion, Muscle weakness, Assistive devices (cane, walker), Transfer issues (unsteady but able to self transfer from chair), Other (RUE tremors) - Neurological Neurological: reports: General weakness, Memory problems - Psychiatric Psychiatric: denies: Behavior disturbances - Endocrine Endocrine: reports: Hypothyroidism Physical Exam - Vital Signs Temperature: 96.5 F Pulse Rate: 62 O2 Saturation: 99 (room air) Blood Pressure: 122/57 (wrist cuff) - Physical Exam General Appearance: positive: No acute distress, Alert Eyes Bilateral: positive: No lid inflammation, Conjunctivae nml, No scleral icterus ENT: positive: No signs of dehydration Neck: positive: Trachea midline Cardiovascular: positive: Regular rate & rhythm, No murmur, No gallop Respiratory: positive: Chest non-tender, No respiratory distress, Diminished in bases (R inferior lobe no air sounds) Skin: positive: Other (hemosiderin staining backs of hands and lower extremities) Extremities: positive: Pedal edema (1+) Neurologic/Psychiatric: positive: Mood/affect nml, Disoriented to time, Slurred/abnml speech (word salad/ word search; expressive aphasia) Palliative Care - POLST Patient has POLST: Yes POLST Status: DNR, Comfort Measures Tiredness/Fatigue: Mild (1-3) Anorexia: Mild (1-3) Sleep: Sleeps well Constipation: Managed (improved) Performance Status: DC'd from PT after 3 of 6 scheduled visits at request of pt and spouse, felt they didn't need more Had one OT visit and was discharged SP did not get scheduled on the part of the patient/family. - Palliative Care Discussion: Patient and his spouse DC'd PT after 3 visit, feeling they had sufficient therapy. She has expressed that they don't want medical and therapy appointments to "take over their life." Ashely last week felt that they didn't need further Palliative Care monitoring, but when the patient was suddenly tired and weak yesterday, she did decide it would be beneficial to continue with the added support of Palliative Care. The patient is back to his baseline today, but she would like Palliative Care to monitor occasionally, we agreed every 3 months or so, and also as needed if something comes up. The goal has been for him to remain at home with comfort care and to avoid hospital if possible. When the EMS came back in September and in July, she was grateful they did. Impression and Recommendations - Palliative Care Impression: 83 year old man with Parkinson's disease, advancing dementia, and expressive aphasia s/p CVA in 2016. He is at his baseline functionally and cognitively, with slow, steady decline. The patient had PT for 3 sessions, plus one OT session, but declined further visits. Patient and his spouse would like to minimize the amount of medical and therapy visits in their life, but would like to continue with Palliative Care support and oversight every 2 or 3 months, and as needs arise. Recommendations/Counseling Done: General weakness: Patient at his baseline. Family decided to decline PT after 3 sessions, and OT was discharged after one session. Dysphagia: SP was ordered, but spouse was overwhelmed at [facility] [place] and did not end up following up with the SP therapist. Parkinson's disease: At baseline. Patient is still ambulatory, though unsteady and weak. Continue Sinemet 25/100 TID. Dementia: Slow, steady, continued decline. Donepezil increased to 20 mg daily. Atrial fibrillation: Amiodarone was decreased by his new pairer odds to 100mg daily. Continue Dabigatran for anticoagulation. Constipation: Improved. Uses Senna as needed. Doesn't use Miralax due to upset stomach. Rash, buttocks/anus: Resolved. They use Coloplast Philomena Antifunal Barrier Cream as needed. Weight loss: Stable. Range is 137-140 lbs. Patient lost ~10 lbs over the past year. Advanced care planning: DNR and comfort care. Goal is to remain at home, but willing to call 911 for emergencies. Follow up every 2-3 months and as needed by the patient. Time Spent: 20 minutes were spent with more than 50% of the time spent on counseling, education, and coordination of care.
== END 2018-10-30 16:30 | disposition home or self-care (01) ==
LOC: PC 16:29
PROVIDERS: ATTEND Nurse Practitioner
DX: Z51.5 Encounter for palliative care (principal); R53.1 Weakness; R13.10 Dysphagia, unspecified; G20 Parkinson's disease; F02.80 Dementia in other diseases classified elsewhere, unspecified severity, without behavioral disturbance, psychotic disturbance, mood disturbance, and anxiety; I48.91 Unspecified atrial fibrillation; K59.00 Constipation, unspecified; R63.4 Abnormal weight loss; I69.320 Aphasia following cerebral infarction; I10 Essential (primary) hypertension; E03.9 Hypothyroidism, unspecified; Z66 Do not resuscitate; Z79.899 Other long term (current) drug therapy; Z79.02 Long term (current) use of antithrombotics/antiplatelets
CPT/HCPCS: 99347

== ENCOUNTER 2018-11-21 18:15 | Outpatient (CLI) | payer MEDICARE | END 2018-11-21 18:16 | disposition critical access hospital (66) | LOC: EMS 18:15 | PROVIDERS: ATTEND Surgery | DX: S09.90XA Unspecified injury of head, initial encounter (principal); S09.93XA Unspecified injury of face, initial encounter; S59.912A Unspecified injury of left forearm, initial encounter; R51 Headache; M79.632 Pain in left forearm; W19.XXXA Unspecified fall, initial encounter; Y92.009 Unspecified place in unspecified non-institutional (private) residence as the place of occurrence of the external cause | CPT/HCPCS: A0425; A0429 ==

== ENCOUNTER 2018-11-21 18:52 | Emergency (ER) | payer MEDICARE ==
[2018-11-21] MEDS ORDERED: BACITRACIN OINT TOP STA (19:08)
[2018-11-21 19:25] LABS: ALBUMIN 3.5 g/dL (3.2-5.5); ALBUMIN/GLOBULIN RATIO 1.4 (1.0-2.2); ALKALINE PHOSPHATASE 77 IU/L (42-121); ALT ALANINE AMINOTRANSFERASE < 10 IU/L (10-60); AST ASPARTATE AMINOTRANSFERASE 13 IU/L (10-42); BILIRUBIN,TOTAL 0.6 mg/dL (0.2-1.0); BUN - BLOOD UREA NITROGEN 22 mg/dL (6-20); CALCIUM 9.6 mg/dL (8.5-10.3); CARBON DIOXIDE - CO2 28 mmol/L (21-32); CHLORIDE 106 mmol/L (101-111); CREATININE 1.3 mg/dL (0.6-1.2); GFR - MDRD 52 (>89); GLUCOSE 99 mg/dL (70-100); LIPASE 29 U/L (22-51); SODIUM 139 mmol/L (135-145)
[2018-11-21 19:50] LABS: BASOPHILS % (AUTO) 0.4 %; EOSINOPHILS # (AUTO) 0.1 10^3/uL (0.0-0.7); EOSINOPHILS % (AUTO) 1.2 %; HGB - HEMOGLOBIN 11.4 g/dL (14.0-18.0); LYMPHOCYTES # (AUTO) 1.1 10^3/uL (1.5-3.5); LYMPHOCYTES % (AUTO) 18.4 %; MEAN CORPUSCULAR HEMOGLOBIN 28.5 pg (27.0-31.0); MEAN CORPUSCULAR HGB CONC 31.9 g/dL (32.0-36.0); MEAN CORPUSCULAR VOLUME 89.4 fL (80.0-94.0); MEAN PLATELET VOLUME 8.2 fL (7.4-11.4); MONOCYTES # (AUTO) 0.6 10^3/uL (0.0-1.0); MONOCYTES % (AUTO) 9.5 %; NEUTROPHILS # (AUTO) 4.3 10^3/uL (1.5-6.6); NEUTROPHILS % (AUTO) 70.5 %; PLT - PLATELET COUNT 182 10^3/uL (130-450); RED BLOOD COUNT 3.99 10^6/uL (4.70-6.10); RED CELL DISTRIBUTION WIDTH 15.7 % (12.0-15.0)
--- NOTE | 2018-11-21 20:04 | XRAY Report ---
Reason: fall Procedure Date: 11/21/2018 Accession Number: [id number] / [id number] Procedure: XR - Chest 1 View X-Ray CPT Code: 04359 FULL RESULT: EXAM: CHEST RADIOGRAPHY EXAM DATE: 11/21/2018 07:43 PM. CLINICAL HISTORY: Fall. COMPARISON: 02/19/2008 12:22 PM. TECHNIQUE: 1 view. FINDINGS: Lungs/Pleura: No focal opacities evident. No pleural effusion. No pneumothorax. Mediastinum: Normal heart size. Left subclavian dual-lead pacemaker is in place. Other: None. IMPRESSION: No acute intrathoracic plain film abnormality. RADIA
--- NOTE | 2018-11-21 20:05 | XRAY Report ---
Reason: injury Procedure Date: 11/21/2018 Accession Number: [id number] / [id number] Procedure: XR - Elbow 3 View LT CPT Code: FULL RESULT: EXAM: LEFT ELBOW RADIOGRAPHY EXAM DATE: 11/21/2018 07:43 PM. CLINICAL HISTORY: Injury. COMPARISON: None. TECHNIQUE: 3 views. FINDINGS: Bones: No fracture or focal bony lesion. There is an olecranon enthesophyte. Joints: No evidence of dislocation. Soft Tissues: No unexpected soft tissue findings. IMPRESSION: No evidence of fracture or dislocation. RADIA
--- NOTE | 2018-11-21 20:06 | XRAY Report ---
Reason: fall, injury Procedure Date: 11/21/2018 Accession Number: [id number] / [id number] Procedure: XR - Pelvis 1 View CPT Code: FULL RESULT: EXAM: PELVIS RADIOGRAPHY EXAM DATE: 11/21/2018 07:43 PM. CLINICAL HISTORY: Fall, injury. COMPARISON: None. TECHNIQUE: 1 view. FINDINGS: Bones: No fracture or focal bony lesion. Joints: No evidence of dislocation. Patient has undergone bilateral hip arthroplasties. Soft Tissues: No unexpected soft tissue findings. IMPRESSION: No evidence of fracture, dislocation, or hardware dysfunction. RADIA
--- NOTE | 2018-11-21 20:07 | CT Report ---
Reason: fall, dementia head injury Procedure Date: 11/21/2018 Accession Number: [id number] / [id number] Procedure: CT - HEAD WO CPT Code: FULL RESULT: EXAM: CT HEAD EXAM DATE: 11/21/2018 07:31 PM. CLINICAL HISTORY: Fall, dementia head injury. COMPARISON: HEAD W/O 09/04/2016 6:58 PM. TECHNIQUE: Multiaxial CT images were obtained from the foramen magnum to the vertex. Reformats: Sagittal and coronal. IV contrast: None. In accordance with CT protocol optimization, one or more of the following dose reduction techniques were utilized for this exam: automated exposure control, adjustment of mA and/or KV based on patient size, or use of iterative reconstructive technique. FINDINGS: Parenchyma: No intraparenchymal hemorrhage. No evidence of mass, midline shift or CT findings of acute territorial infarction. Kenney-white differentiation is distinct. Deep white matter low attenuation likely reflects chronic micro-angiopathic ischemic change. Moderate global volume loss as before. Redemonstration of right parietal lobe encephalomalacia. Extraaxial Spaces: No subdural or epidural collections identified. Ventricles: Ex-vacuo dilatation. Sinuses: Imaged paranasal sinuses, orbits, and mastoids show no significant abnormality. Bones: No evidence of acute fracture or calvarial defect. Other: None. IMPRESSION: No acute intracranial abnormalities. RADIA
--- NOTE | 2018-11-21 20:07 | CT Report ---
Reason: fall, dementia head injury Procedure Date: 11/21/2018 Accession Number: [id number] / [id number] Procedure: CT - CERVICAL SPINE WO CPT Code: FULL RESULT: EXAM: CT CERVICAL SPINE WITHOUT CONTRAST DATE: 11/21/2018 07:32 PM. HISTORY: Fall, dementia head injury. COMPARISONS: None. TECHNIQUE: Thin-section axial images were acquired of the cervical spine without contrast. Post-processing: Coronal and sagittal reformats. Other: None. In accordance with CT protocol optimization, one or more of the following dose reduction techniques were utilized for this exam: automated exposure control, adjustment of mA and/or KV based on patient size, or use of iterative reconstructive technique. FINDINGS: Alignment: Within normal limits. No scoliosis or spondylolisthesis. Bones: No acute fractures. Severe multilevel degenerative disk disease, worse from C5-T1 with loss of disk height, osteophytes, and sclerosis. Spinal Canal: No high grade narrowing. Other: The paravertebral and prevertebral soft tissues are unremarkable. 9 mm nodule in the right thyroid lobe. The partially imaged lung apices are clear. IMPRESSION: No acute fracture. RADIA
[2018-11-21 20:47] LABS: PLATELET ESTIMATE, MANUAL NORMAL (130-450,000) (NORMAL)
[2018-11-21 20:50] LABS: PLATELET MORPHOLOGY NORMAL APP (NORMAL)
--- NOTE | 2018-11-21 20:53 | ED Physician Documentation ---
PD HPI Fall - Stated complaint Stated Complaint: GLF - Chief complaint Chief Complaint: Trauma Hd/Nk - Additional information Additional information: 83-year-old male with a history of dementia and Parkinson's was found by his to have fallen. The patient sustained a head injury and skin tear of his left elbow. The patient is unable to provide any background regarding the fall. No other reports of injury. The history is limited secondary to the patient's dementia and this being an unwitnessed fall Review of Systems Unable to obtain: Dementia PD PAST MEDICAL HISTORY - Past Medical History Cardiovascular: Hypertension, High cholesterol, Coronary artery disease, Atrial fibrillation Respiratory: Sleep apnea Neuro: Dementia, Parkinson's Endocrine/Autoimmune: HyPOthyroidism HEENT: Glaucoma, Macular degeneration - Past Surgical History Past Surgical History: Yes General: Colonoscopy Ortho: Hip replacement, Knee replacement Cardiovascular: CABG, Pacemaker Derm: Skin cancer surgery - Present Medications Home Medications: Ambulatory Orders Medication Instructions Recorded Confirmed Amiodarone [Pacerone] 100 mg PO DAILY 08/23/14 10/30/18 Atorvastatin Calcium 20 mg PO QPM 04/10/18 10/30/18 Carbidopa/Levodopa [Carbidopa-Levo 1 tab PO TID 04/10/18 10/30/18 ER 25-100 Tab] Dabigatran Etexilate Mesylate 150 mg PO BID 04/10/18 10/30/18 [Pradaxa] Donepezil [Aricept] 20 mg PO DAILY 04/10/18 10/30/18 Levothyroxine [Synthroid] 50 mcg PO DAILY 04/10/18 10/30/18 Bisacodyl Supp [Dulcolax Supp] 10 mg MA PRN PRN MDD use only if 06/13/18 10/30/18 no BM in 3 days Coloplast Philomena Antifung Barrier Crm 1 ea TOP DAILY PRN 06/13/18 10/30/18 Senna [Senokot] 1 - 2 tab PO DAILY 06/13/18 10/30/18 - Allergies Allergies/Adverse Reactions: Allergies Allergy/AdvReac Type Severity Reaction Status Date / Time codeine Allergy Itching Verified 11/21/18 18:58 lisinopril Allergy Unknown Verified 11/21/18 18:58 Sulfa (Sulfonamide Allergy Rash Verified 11/21/18 18:58 Antibiotics) - Social History Does the pt smoke?: No Smoking Status: Never smoker Does the pt drink ETOH?: Yes Does the pt have substance abuse?: No - Immunizations Immunizations are current?: No - POLST Patient has POLST: Yes PD ED PE NORMAL - General General: Other (83-year-old debilitated male who appears to be in no significant distress) - HEENT HEENT: PERRL, EOMI, Ears normal - Cardiac Cardiac: RRR, Strong equal pulses - Respiratory Respiratory: No respiratory distress, Clear bilaterally - Abdomen Abdomen: Soft, Non tender - Derm Derm: Other (Large skin tear of the left elbow) - Extremities Extremities: No deformity, No tenderness to palpate, Normal ROM s pain - Neuro Neuro: Other (The patient's alert, cooperative, follows commands and has no focal deficit) PD ED PE EXPANDED - HEENT HEENT: Head injury HEENT Visual: 1 - laceration (0.5 cm scalp laceration) Results - Vitals Vitals: Vital Signs - 24 hr 11/21/18 11/21/18 18:53 21:00 Temperature 36.3 C L 36.5 C Heart Rate 64 68 Respiratory 20 18 Rate Blood Pressure 138/68 H 134/71 H O2 Saturation 98 98 Oxygen O2 Source Room air - Labs Labs: Laboratory Tests 11/21/18 11/21/18 17:00 17:00 WBC 6.0 RBC 3.99 L Hgb 11.4 L Hct 35.6 L MCV 89.4 MCH 28.5 MCHC 31.9 L RDW 15.7 H Plt Count 182 MPV 8.2 Neut # (Auto) 4.3 Lymph # (Auto) 1.1 L Blount # (Auto) 0.6 Eos # (Auto) 0.1 Baso # (Auto) 0.0 Absolute Nucleated RBC 0.01 Nucleated RBC % 0.1 Manual Slide Review Indicated WBC Morphology NORMAL APPEARANCE Platelet Estimate NORMAL (130-450,000) Platelet Morphology NORMAL FREDY RBC Morph Micro Appear 1+ BASO STIPPLING Sodium 139 Potassium 3.9 Chloride 106 Carbon Dioxide 28 Anion Gap 5.0 L BUN 22 H Creatinine 1.3 H Estimated GFR (MDRD) 52 L Glucose 99 Calcium 9.6 Total Bilirubin 0.6 AST 13 ALT < 10 L Alkaline Phosphatase 77 Total Protein 6.0 L Albumin 3.5 Globulin 2.5 Albumin/Globulin Ratio 1.4 Lipase 29 - Rads (name of study) CT head/neck Radiology: Final report received, See rad report (No acute intracranial abnormalities. No acute fracture.) Elbow Radiology: Final report received, See rad report elbow Radiology: Final report received, See rad report hip Radiology: Final report received, See rad report Procedures - Laceration (location) Scalp Length in cm: 0.5 Wound type: Linear Skin layer closure: Tensed Other: Patient tolerated well, No complications, Tetanus booster given PD MEDICAL DECISION MAKING - ED course ED course: The findings were discussed with the patient's significant other. Presently the patient appears appropriate for discharge and ongoing outpatient management. The patient will return to the emergency department for any worsening or concerns Departure - Departure Disposition: 01 Home, Self Care Clinical Impression: Skin tear Scalp laceration Qualifiers: Encounter type: initial encounter Qualified Code(s): S01.01XA - Laceration w ithout foreign body of scalp, initial encounter Head injury Qualifiers: Encounter type: initial encounter Qualified Code(s): S09.90XA - Unspecified injury of head, initial encounter Fall Qualifiers: Encounter type: initial encounter Qualified Code(s): W19.XXXA - Unspecified fall, initial encounter Condition: Good Instructions: ED Head Injury Closed, ED Laceration All, ED Avulsion Dermal, ED Laceration General Ch Follow-Up: Galina Navarrete, DIGITAL ACCOUNT COORDINATOR [Primary Care Provider] - Within 1 week (Please have your staple removed in 7 days) Comments: Please return to the emergency department for worsening symptoms or any concerns
[2018-11-21 21:01] VITALS: BP 134/71
== END 2018-11-21 21:03 | disposition home or self-care (01) ==
LOC: EDBD → EDUNIT# → ED 18:52
DX: S01.01XA Laceration without foreign body of scalp, initial encounter (principal); S51.012A Laceration without foreign body of left elbow, initial encounter; W07.XXXA Fall from chair, initial encounter; W22.03XA Walked into furniture, initial encounter; I10 Essential (primary) hypertension; G20 Parkinson's disease; F02.80 Dementia in other diseases classified elsewhere, unspecified severity, without behavioral disturbance, psychotic disturbance, mood disturbance, and anxiety; Z79.02 Long term (current) use of antithrombotics/antiplatelets
CPT/HCPCS: 12001; 36415; 70450; 71045; 72125; 72170; 73080; 80053; 83690; 85025; 93005; 99283; A9270

== ENCOUNTER 2018-12-01 10:49 | Outpatient (CLI) | payer MEDICARE ==
--- NOTE | 2018-12-02 00:02 | CT Report ---
Reason: UNSPECIFIED INJURY OF HEAD,SUBSEQUENT ENCOUNTER Procedure Date: 12/01/2018 Accession Number: [id number] / [id number] Procedure: CT - HEAD WO CPT Code: FULL RESULT: EXAM: CT HEAD EXAM DATE: 12/01/2018 11:26 AM. CLINICAL HISTORY: Unspecified injury of head, subsequent encounter. COMPARISON: HEAD W/O 11/21/2018 7:19 PM. TECHNIQUE: Multiaxial CT images were obtained from the foramen magnum to the vertex. Reformats: Sagittal and coronal. IV contrast: None. In accordance with CT protocol optimization, one or more of the following dose reduction techniques were utilized for this exam: automated exposure control, adjustment of mA and/or KV based on patient size, or use of iterative reconstructive technique. FINDINGS: Parenchyma: No intraparenchymal hemorrhage. No evidence of mass, midline shift or CT findings of acute infarction. Remote small right parietal infarct. Kenney-white differentiation is distinct. Diffuse mild chronic microangiopathic white matter changes are evident. Extraaxial Spaces: Normal for age. No subdural or epidural collections identified. Ventricles: The ventricles and cortical sulci are moderately enlarged, consistent with age-related tissue loss. Sinuses: Imaged paranasal sinuses, orbits, and mastoids show no significant abnormality. Bones: No evidence of fracture or calvarial defect. Other: None. IMPRESSION: Mild to moderate senescent changes and old small right parietal infarct without evidence of acute intracranial abnormality. RADIA
== END 2018-12-01 10:50 | disposition home or self-care (01) ==
LOC: DI 10:49
PROVIDERS: ATTEND Nurse Practitioner Family
DX: S09.90XD Unspecified injury of head, subsequent encounter (principal)
CPT/HCPCS: 70450

== ENCOUNTER 2018-12-24 10:05 | Outpatient (CLI) | payer MEDICARE ==
--- NOTE | 2018-12-24 12:31 | CONSULTATION NOTE ---
Palliative Care Follow Up - Referral Referring Provider: ALMA DELIA Toro Time of Visit: Mon12/24/2018. 10:05 - 10:35 Referral setting: Home Referral Reason: Increasing debility - Information Sources Records reviewed: Previous records reviewed History/Review of Systems obtained from: Patient, Family Exam limitations: Clinical condition (Advancing dementia; expressive aphasia) - History of Present Illness Update Brief HPI Update: 83-year-old man with Parkinson's disease, advancing dementia, and expressive aphasia s/p CVA in 2015. 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 Patien't spouse and patient had felt a little overwhelmed with too many medical workers when patient was on Home [facility]. ana had OT, PT, nursing and SP. They eventually bowed out early on the therapies. They also didn't think they needed palliative care coverage, but a week later changed her mind, due to an acute episode of weakness. We agreed that palliative care would make visit every 2-3 months, and as needed. Spouse called on Monday concerned because the patient's "mind is gone, he is out of control and it's uncomfortable." Palliative Care paid a visit at earliest opportunity, which was Monday morning. Patient is relaxed and quiet in his recliner. His processing time and expressive aphasia are worsening. He is able to stand up from his recliner, but declines to walk for me; he doesn't feel steady or strong enough. His bedroom is upstairs (there are no bedrooms on the main floor of house). He goes up and down the stairs; his assists him with the belt going down the stairs. (However this morning he navigated down the stairs independently He has a big breakfast in front of him, which he eats independently. Spouse reports he has a good appetite, and has gained a few lbs; he's approx 142 lbs now. What had concerned his spouse is patient's increased episodes of agitation and impulsivity. He becomes anxiety and impulsively decided he wants to leave the house, go someplace. He hasn't been able to drive in over a year, but recently started talking about wanting to drive again. She wanted DIGITAL STRATEGY SPECIALIST to reinforce the message that he must not drive, it's no longer safe. This was done. His PCP started escitalopram about a week ago, and spouse has already seen some improvement in his behavior/impulsivity. He is calm this morning, but she reports his behavior, anxiety flares up in the afternoons. He had a fall a month or two ago, fell against a buffet, broke the glass in the door. He was home alone at the time; spouse came back and found him on the floor. He has recovered since then, but she is more cautious. His PCP increased his Sinemet to 2 tabs BID and 1 tab in middle of day, and spouse notes that falls have decreased since the increase in dosing. They have a caregiver (called "their friend" because patient doesn't want "care givers") who comes 3x/week for about 7 hours. Spouse is in process of trying to bring in a secnod "friend" for mason coverage. 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 Spouse reports bowel movements are bout every 3 days. He's very sensitive to bowel softeners, gets loose stools easily. She when she gave him Miralax after a 4th day without BM, he got loose stools. She finds that giving him flaxseed works well. Social History - Living Situation Living arrangement: At home Living Situation: With spouse/s.o. Support System: Patient lives at home with Ashely his partner of 20+ years. They do have a helper 3x/week for about 7 hours, for housework, cooking and watching the yadi ent so Ashely can run errands and get out of the house, and go to the nearby farmland she works at. Ashely is in process of bringing in a second paid worker for caregiving/household help. 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 Medications/Allergies - Medications Home Medications: Ambulatory Orders Medication Instructions Recorded Confirmed Atorvastatin Calcium 20 mg PO QPM 04/10/18 12/24/18 Carbidopa/Levodopa [Carbidopa-Levo 2 tab PO BID 04/10/18 12/24/18 ER 25-100 Tab] Dabigatran Etexilate Mesylate 150 mg PO BID 04/10/18 12/24/18 [Pradaxa] Donepezil [Aricept] 20 mg PO DAILY 04/10/18 12/24/18 Levothyroxine [Synthroid] 50 mcg PO DAILY 04/10/18 12/24/18 Bisacodyl Supp [Dulcolax Supp] 10 mg AL PRN PRN MDD use only if 06/13/18 12/24/18 no BM in 3 days Coloplast Philomena Antifung Barrier Crm 1 ea TOP DAILY PRN 06/13/18 12/24/18 Senna [Senokot] 1 - 2 tab PO DAILY PRN 06/13/18 12/24/18 Carbidopa/Levodopa [Carbidopa-Levo 1 tab PO .MIDDAY 12/24/18 12/24/18 ER 25-100 Tab] - Allergies Allergies/Adverse Reactions: Allergies Allergy/AdvReac Type Severity Reaction Status Date / Time codeine Allergy Itching Verified 11/21/18 18:58 lisinopril Allergy Unknown Verified 11/21/18 18:58 Sulfa (Sulfonamide Allergy Rash Verified 11/21/18 18:58 Antibiotics) Review of Systems - Constitutional Constitutional: reports: Weakness, Weight gain (142 lbs most recent. His range has been 137-140 lbs. He lost around 10 lbs over a one-year period). denies: Poor appetite - Ears, Nose & Throat Ears, Nose & Throat: reports: Hearing loss - Cardiovascular Cardiovascular: reports: Decr. exercise tolerance. denies: Chest pain, Edema, Exertional dyspnea - Respiratory Respiratory: denies: Cough, SOB at rest - Gastrointestinal Gastrointestinal: reports: Diarrhea (loose stools if bowel med dosing is too high). denies: Abdominal pain, Constipation - Genitourinary Genitourinary: reports: Incontinence (occasional, urinary). denies: Dysuria - Musculoskeletal Musculoskeletal: reports: Stiffness, Limited range of motion, Assistive devices (cane), Transfer issues (unsteady, weak) - Integumentary Integumentary: reports: Dryness - Neurological Neurological: reports: Focal weakness (lower extremities), Abnormal gait, Other (RUE tremor (Parkinson's)) - Psychiatric Psychiatric: reports: Anxiety - Endocrine Endocrine: reports: Hypothyroidism Physical Exam - Vital Signs Temperature: 96.5 F Pulse Rate: 64 O2 Saturation: 99 (room air) Blood Pressure: 135/66 (wrist cuff) - Physical Exam General Appearance: positive: No acute distress, Lethargic Eyes Bilateral: positive: Normal inspection ENT: positive: No signs of dehydration Neck: positive: Trachea midline Cardiovascular: positive: Regular rate & rhythm (pacemaker), No gallop. negative: Systolic murmur Respiratory: positive: Chest non-tender, No respiratory distress, Diminished in bases Abdomen: positive: Non-tender, Soft, Nml bowel sounds Skin: positive: Dryness, Bruising (arms, back of hands) Neurologic/Psychiatric: positive: Disoriented to time, Flat affect Palliative Care - POLST Patient has POLST: Yes POLST Status: DNR, Comfort Measures Tiredness/Fatigue: Mild (1-3) Drowsiness/Sedation: Mild (1-3) Anxiety: Mild (1-3) Anorexia: None Sleep: Sleeps well Constipation: Comment (Has bowel movements Q3days) Performance Status: increased weakness in lower extremities patient shakily stands up from recliner, but declines to walk because he's feeling weak and with poor balance; it's morning when he's more shaky (per spouse) h/o falls, this has improved with increase in Sinemet dosage he has to navigate stairs to get to bedroom; there are no bedrooms on main floor of house. spouse uses a belt to assist pt to navigate down the stairs good appetite, small weight gain. - Palliative Care Discussion: The patient is slowly declining, it's notable his expressive aphasia and processing time is worsening. Spouse says falls have improved with new dosing of two Sinemet tabs morning and evening, one tab in afternoon. He had his adult grandchildren visit them last week. He was very alert and happy, and felt good enough to "run around all over with them" including a walk (with his cane) of two miles, per his . generally doesn't want him to walk outside due to his unsteadiness. Goal remains to keep him comfortable at home, with Hospice eventually. They are financially able to hire caregivers, and she is in the process of hiring a second caregiver/helper. Currently they have help 3 days per week. This works out very well for them. The patient is attached to the caregiver and is comfortable with her around. The spouse gets a break to get out of the house and have some time for herself. Impression and Recommendations - Palliative Care Impression: 83-year-old man with Parkinson's disease, worsening dementia and expressive aphasia and increasing lower extremity weakness and unsteadiness of gait. Falls have improved after increasing the Sinemet dosage. He was started on escitalopram about a week ago; spouse has seen improvement in his levels of agitation and anxiety. Palliative Care will continue to provide support and oversight every 2-3 months, and as needed. Recommendations/Counseling Done: General weakness: Patient on slow, steady decline. Still ambulatory with cane. There are no bedrooms on the main floor of house, so patient still goes up and down stairs; uses belt to support him. Parkinson's disease: Continued slow, steady decline. Remains ambulatory, though unsteady and weak. Falls improved after Sinemet was increased to two tablets (25/100) morning and evening, and one tablet (25/100) in afternoon. Dementia: Slow, steady, continued decline. Donepezil 20 mg daily. Atrial fibrillation: Amiodarone DC'd by his hepatologist. Still on Dabigatran for anticoagulation. Constipation: His baseline is Q3 days, per . She uses Miralax if he goes beyond that, though it gives him loose stools. OK to use Senna as needed. Also has Dulcolax as needed. Weight loss: Stabilized. He has a good appetite and has gained a few lbs, now around 142 lbs. Range is 137-140 lbs. This is about ~10 lbs weight loss over a year. Advanced care planning: DNR and comfort care. Goal is to remain at home through end of life. OK to call 911 for emergencies. Follow up every 2-3 months and as needed by the patient. Time Spent: 30 minutes were spent with more than 50% of the time spent on counseling, education, and coordination of care regarding medication changes.
== END 2018-12-24 10:06 | disposition home or self-care (01) ==
LOC: PC 10:05
PROVIDERS: ATTEND Nurse Practitioner
DX: Z51.5 Encounter for palliative care (principal); G20 Parkinson's disease; F02.80 Dementia in other diseases classified elsewhere, unspecified severity, without behavioral disturbance, psychotic disturbance, mood disturbance, and anxiety; R45.1 Restlessness and agitation; I69.320 Aphasia following cerebral infarction; I48.91 Unspecified atrial fibrillation; K59.00 Constipation, unspecified; Z95.0 Presence of cardiac pacemaker; Z66 Do not resuscitate; Z91.81 History of falling; Z79.899 Other long term (current) drug therapy
CPT/HCPCS: 99348

== ENCOUNTER 2019-01-20 20:07 | Outpatient (CLI) | payer MEDICARE | END 2019-01-20 20:08 | disposition short-term general hospital (02) | LOC: EMS 20:07 | PROVIDERS: ATTEND Surgery | DX: S09.90XA Unspecified injury of head, initial encounter (principal); S41.111A Laceration without foreign body of right upper arm, initial encounter; W19.XXXA Unspecified fall, initial encounter; Y92.002 Bathroom of unspecified non-institutional (private) residence as the place of occurrence of the external cause ==

== ENCOUNTER 2019-01-22 18:15 | Outpatient (CLI) | payer MEDICARE ==
--- NOTE | 2019-01-22 18:27 | CONSULTATION NOTE ---
Palliative Care Follow Up - Referral Referring Provider: ALMA DELIA Manrique Time of Visit: [place] 01/22/2019. 15:15 - 16:00 Referral setting: Home Referral Reason: Declining functionality, cognition - Information Sources Records reviewed: Previous records reviewed History/Review of Systems obtained from: Patient, Family Exam limitations: Clinical condition (Advanced dementia; expressive aphasia) - History of Present Illness Update Brief HPI Update: 83-year-old man with Parkinson's disease, advancing dementia, and expressive aphasia s/p CVA in 2015. 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 At last month's visit spouse was concerned about patient's continuing decline. She wanted him to remain at home, was planning to hire a 2nd caregiver to help out. Caregiving needs were discussed, and the safety of their home. It's a 2-story house, bedroom is upstairs, there is no sleeping area on the main floor unless they convert the living room. Patient was continuing to navigate stairs, while his ambulation, cognition and balance were worsening. He continued to sleep upstairs and navigate stairway with belted-support of spouse. By end december, spouse and family was deciding on whether to move him to a facility and asked Palliative for advice. Recommended [facility], a placement service. CASING RUNNER recommended that when they narrowed down to a facility, find out what the facility will need from them. They will need to find a PCP or provider for the patient is [place], which is their preference since there is family [place] to support him. Then on 01/20/19 patient fell in bathroom and injured head He was taken to [facility], ran diagnostics and tests. Ashely had been in hospital for a week and the patient's son, Erasmo, came to help out. Ashely thinks she would not have been able to make it without Erasmo's help. Erasmo is helping research facilities, and family is planning to move him into a facility. They are considering [facility]. Erasmo has an appointment there tomorrow. Patient is awake, hypomimia in appearance (masked facial expression) Sitting in his recliner, intent on the television program (a Western). It appears he may recognize me. He has a large hemotoma around R eye and R forehead. He has declined quite significantly since my previous visit. Cognition and expressive aphasia quite markedly worse, speech is almost completely garbled, only one or two words/phrases are recognizable. He is incontinent, sleeps most of the night, it's good when he's on a schedule. Still eats well and able to feed himself. Unsteady balance, but continues to ambulate independently; needs close/standby assistance Social History - Living Situation Living arrangement: At home Living Situation: With spouse/s.o. Support System: Patient lives at home with Ashely his partner of 20+ years. They do have a helper 3x/week for about 7 hours, for housework, cooking and watching the patient so Ashely can run errands and get out of the house, and go to the nearby farmland she works at. 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 [place] currently, helping Ashely out with care and with research on Memory Care Units. The other adult children are not involved. Erasmo's children [place] Medications/Allergies - Medications Home Medications: Ambulatory Orders Medication Instructions Recorded Confirmed Atorvastatin Calcium 20 mg PO QPM 04/10/18 12/24/18 Carbidopa/Levodopa [Carbidopa-Levo 2 tab PO BID 04/10/18 12/24/18 ER 25-100 Tab] Dabigatran Etexilate Mesylate 150 mg PO BID 04/10/18 12/24/18 [Pradaxa] Donepezil [Aricept] 20 mg PO DAILY 04/10/18 12/24/18 Levothyroxine [Synthroid] 50 mcg PO DAILY 04/10/18 12/24/18 Bisacodyl Supp [Dulcolax Supp] 10 mg TN PRN PRN MDD use only if 06/13/18 12/24/18 no BM in 3 days Coloplast Philomena Antifung Barrier Crm 1 ea TOP DAILY PRN 06/13/18 12/24/18 Senna [Senokot] 1 - 2 tab PO DAILY PRN 06/13/18 12/24/18 Carbidopa/Levodopa [Carbidopa-Levo 1 tab PO .MIDDAY 12/24/18 12/24/18 ER 25-100 Tab] - Allergies Allergies/Adverse Reactions: Allergies Allergy/AdvReac Type Severity Reaction Status Date / Time codeine Allergy Itching Verified 11/21/18 18:58 lisinopril Allergy Unknown Verified 11/21/18 18:58 Sulfa (Sulfonamide Allergy Rash Verified 11/21/18 18:58 Antibiotics) Review of Systems - Constitutional Constitutional: reports: Weight loss (134 lbs about 3 weeks ago, at home. His range has been 137-140 lbs. He lost around 10 lbs over a one-year period). denies: Poor appetite - Ears, Nose & Throat Ears, Nose & Throat: reports: Hearing loss - Cardiovascular Cardiovascular: reports: Decr. exercise tolerance - Gastrointestinal Gastrointestinal: reports: Good appetite. denies: Constipation - Genitourinary Genitourinary: reports: Incontinence - Musculoskeletal Musculoskeletal: reports: Assistive devices, Transfer issues (has increased difficulty self transferring) - Neurological Neurological: reports: General weakness, Pre-existing deficit, Abnormal gait, Slurred speech - Endocrine Endocrine: reports: Hypothyroidism Physical Exam - Vital Signs Temperature: 96.5 F Pulse Rate: 62 O2 Saturation: 98 (room air) Blood Pressure: 95/51 (wrist cuff) - Physical Exam General Appearance: positive: No acute distress, Alert, Other (Awake, Parkinson's wide eyed stare) Eyes Bilateral: positive: Normal inspection ENT: positive: No signs of dehydration Neck: positive: Trachea midline Cardiovascular: positive: Regular rate & rhythm Respiratory: positive: Chest non-tender, No respiratory distress, Diminished throughout Skin: positive: Dryness, Bruising (back of hands; R forehead; R eye socket.) Extremities: positive: Pedal edema (trace) Neurologic/Psychiatric: positive: Disoriented to person, Disoriented to place, Disoriented to time, Flat affect Palliative Care - POLST Patient has POLST: Yes POLST Status: DNR, Comfort Measures Performance Status: increased falls, bad fall two days ago 01/20/19, hit head/face in bathroom. Went to [facility] ED. worsening cognition worsening expressive aphasia worsening balance and gait, requires assistance has to navigate the stairs to get to bed. caregiver and spouse support him with a belt good appetite, still feeds self incontinent sleeps most of the night, it works well when he's kept on a schedule - Palliative Care Discussion: Spouse is extremely anxious and upset with his bad fall Monday night 01/20/19. Her goal has been to keep him at home, it's something she promised him. She realizes that she can no longer keep him safely at home, but feels confusion, guilt about contemplating putting him in a facility. Patient's son is here to help and support her, she is very grateful. He's helping her research facilities. She asked for a Palliative Care visit today, for advice and information. CASING RUNNER repeated that home environment is no longer safe for patient. If she keeps him at home, she'll need more extensive hired assurance services manager health care support. He'll need to start sleeping downstairs, so the living area would need to be altered. Bathroom would need to altered. She is relieved to have validation that moving him to a memory care unit is the appropriate and safe option. Palliative Care provider offered empathetic listening and normalization of her feelings and experience. Palliative Care provider gave guidance on looking for memory care units, the ones [place]. They are leaning toward an [place] facility since [place]asmo lives [place], as do his children. They would visit the [place], whereas if patient were at an [facility] memory care unit, they would not be able to visit often. [facility] is the only place offering memory care on [facility]. They are leaning toward [facility] memory care in [place]; they have an appointment tomorrow. Impression and Recommendations - Palliative Care Impression: 83-year-old man with Parkinson's disease, continuing decline of his dementia, expressive aphasia, balance, gait, and lower extremity weakness. Fell two days ago, went to [facility] ED for injury to face and forehead; significant hematoma of R eye socket and R forehead. Family plans to move him into a memory care unit, most likely [place]. Palliative Care will continue to provide support and monitoring while [place]. Recommendations/Counseling Done: General weakness: Continued decline. Bad fall two nights ago, hit head/face, went to [facility] ED, has large hematomas on R eye socket and R forehead. Still ambulatory with cane. There are no bedrooms on the main floor of house, so patient still goes up and down stairs; uses belt to support him. Parkinson's disease: Worsening cognition and expressive aphasia; verbalization is garbles, incomprehensible.Falls improved Still on Sinemet two tablets (25/100) morning and evening, and one tablet (25/100) in afternoon. Dementia: Slow, steady, continued decline. Donepezil 20 mg daily. Atrial fibrillation: Still on Dabigatran for anticoagulation. Constipation: His baseline is Q3 days, per . She uses Miralax if he goes beyond that, though it gives him loose stools. OK to use Senna as needed. Also has Dulcolax as needed. Weight loss: Good appetite, still feeds self. 134 lbs about 3 weeks ago, at home. His range has been 137-140 lbs. No weights from his visit to [facility] ED two days ago. He lost around 10 lbs over a one-year period. Advanced care planning: DNR and comfort care. Spouse realizes she is no longer able to provide level of care and surveillance he needs, home environment is no longer safe for him. She, and patient's son are planning to move him to a memory care unit, [place], possibly [facility] in [place]. Palliative Care will continue to support patient and family while he remains on [facility]. Spouse very grateful for support of [facility] and Palliative Care. Spouse will update Palliative Care on their plans and when/if they move him [place]. Time Spent: 45 minutes were spent with more than 50% of the time spent on counseling, education, providing anticipatory guidance and coordination of care with family.
== END 2019-01-22 18:16 | disposition home or self-care (01) ==
LOC: PC 18:15
PROVIDERS: ATTEND Nurse Practitioner
DX: Z51.5 Encounter for palliative care (principal); G20 Parkinson's disease; F02.80 Dementia in other diseases classified elsewhere, unspecified severity, without behavioral disturbance, psychotic disturbance, mood disturbance, and anxiety; I69.920 Aphasia following unspecified cerebrovascular disease; H91.90 Unspecified hearing loss, unspecified ear; R32 Unspecified urinary incontinence; R26.9 Unspecified abnormalities of gait and mobility; E03.9 Hypothyroidism, unspecified; Z66 Do not resuscitate; S00.11XD Contusion of right eyelid and periocular area, subsequent encounter; S00.83XD Contusion of other part of head, subsequent encounter; W19.XXXD Unspecified fall, subsequent encounter; Z91.81 History of falling; I48.91 Unspecified atrial fibrillation; K59.00 Constipation, unspecified; R63.4 Abnormal weight loss; E78.5 Hyperlipidemia, unspecified; M25.559 Pain in unspecified hip; I10 Essential (primary) hypertension; G47.33 Obstructive sleep apnea (adult) (pediatric); Z96.643 Presence of artificial hip joint, bilateral; Z95.0 Presence of cardiac pacemaker; Z85.828 Personal history of other malignant neoplasm of skin
CPT/HCPCS: 99349